=== PATIENT | male | born 1970 | race Caucasian/White ===

== ENCOUNTER 2017-02-19 10:28 | Inpatient (IN) | payer MEDICAID, OTHER ==
[~2017-02-19] VITALS: Ht 177.8 cm; Wt 106.6 kg
[2017-02-19 10:47] LABS: GLUCOSE,POINT OF CARE 113 MG/DL (70-110)
[2017-02-19] MEDS ORDERED: METF500T4 PO (10:48)
[2017-02-19] MEDS ORDERED: PSYCH MED PO (10:48)
[2017-02-19] MEDS ORDERED: LISI-660 PO (10:48)
[2017-02-19] MEDS ORDERED: PARO10TA89 PO (10:48)
[2017-02-19] MEDS ORDERED: OLAN2.5T3 PO (10:48)
[2017-02-19] MEDS ORDERED: LORazepam 2 MG/ML VIAL IM ONE (12:00)
[2017-02-19] MEDS ORDERED: HALOPERIDOL LACTATE 5 MG/ML VIAL IM ONE (12:00)
[2017-02-19] MEDS ORDERED: DiphenhydrAMINE HCL 50 MG/ML VIAL IM ONE (12:00)
[2017-02-19 12:20] LABS: BASOPHILS # (AUTO) 0.08 K/uL (0.00-0.20); BASOPHILS % (AUTO) 0.8 % (0.0-2.0); EOSINOPHILS # (AUTO) 0.02 K/uL (0.00-0.70); EOSINOPHILS % (AUTO) 0.22 % (1.0-6.0); HEMATOCRIT 41.6 % (41-53); HEMOGLOBIN 14.3 g/dL (13.5-17.5); LYMPHOCYTES # (AUTO) 2.2 K/uL (1.0-4.8); LYMPHOCYTES % (AUTO) 23.8 % (22.0-44.0); MEAN CORPUSCULAR HEMOGLOBIN 30.3 pg (26.0-34.0); MEAN CORPUSCULAR HGB CONC 34.3 G/dL (31.0-37.0); MEAN CORPUSCULAR VOLUME 88 fL (80-100); MONOCYTES # (AUTO) 0.6 K/uL (0.1-1.0); MONOCYTES % (AUTO) 6.7 % (2.0-9.0); NEUTROPHILS # (AUTO) 6.3 K/uL (1.8-7.7); NEUTROPHILS % (AUTO) 68.6 % (40.0-70.0); PLATELET COUNT (AUTO) 346 K/uL (150-450); RED BLOOD CELL COUNT(AUTO) 4.72 MIL/uL (4.50-5.90); RED CELL DISTRIBUTION WIDTH 13.4 % (11.5-14.5); WHITE BLOOD COUNT (AUTO) 9.3 K/uL (4.5-11.0)
[2017-02-19 12:32] LABS: ANION GAP 11 mmol/L (8-16); CARBON DIOXIDE 23 mmol/L (22-29); CHLORIDE 104 mmol/L (98-107); CREATININE 1.21 mg/dL (0.60-1.30); GLOMERULAR FILTR. RATE CALC > 60 mL/min (>60); POTASSIUM 4.3 mmol/L (3.5-5.1); SODIUM SERUM 138 mmol/L (136-145); UREA NITROGEN, BLOOD 10 mg/dL (7-18)
[2017-02-19 12:37] LABS: ALANINE AMINOTRANSFERASE 77 U/L (12-78); ALBUMIN 3.9 g/dL (3.4-5.0); ASPARTATE AMINOTRANSFERASE 29 U/L (15-37); BILIRUBIN,TOTAL 0.2 mg/dL (0.1-1.0); TOTAL PROTEIN, SERUM 7.5 g/dL (6.4-8.2)
[2017-02-19] MEDS ORDERED: HALOPERIDOL 5 MG TABLET PO PRN (16:00)
[2017-02-19] MEDS ORDERED: ZOLPIDEM TARTRATE 10 MG TABLET PO PRN (16:00)
[2017-02-19 16:16] VITALS: BP 136/75
[2017-02-19 16:57] LABS: GLUCOSE,POINT OF CARE 134 MG/DL (70-110)
[2017-02-19] MEDS ORDERED: INSULIN ASPART 100 UNITS/ML SQ PRN (17:00)
[2017-02-19] MEDS ORDERED: GLUCAGON,HUMAN RECOMBINANT 1 MG VIAL IM PRN (17:00)
[2017-02-19] MEDS ORDERED: PNEUMOCOCCAL VACCINE POLYVALENT 0.5 ML VIAL [PPSV23] IM ONE (18:00)
[2017-02-20 02:15] VITALS: BP 130/78
[2017-02-20 06:12] LABS: GLUCOSE,POINT OF CARE 103 MG/DL (70-110)
[2017-02-20] MEDS: MetFORMIN HCL 500 MG TABLET PO SCH (06:30)
[2017-02-20 08:00] VITALS: BP 128/81
[2017-02-20] MEDS: NICOTINE 21 MG/24 HOUR PATCH TD SCH (08:34)
[2017-02-20] MEDS: LISINOPRIL 5 MG TABLET PO SCH (08:34)
[2017-02-20] MEDS: LORazepam 2 MG TABLET PO PRN (08:34)
[2017-02-20] MEDS: PARoxetine HCL 20 MG TABLET PO SCH (09:43)
[2017-02-20] MEDS: QUEtiapine FUMARATE 100 MG TABLET PO SCH (09:43)
[2017-02-20 10:06] LABS: CHOL/HDL RATIO 3.7 (4.2-7.3)
[2017-02-20 16:00] VITALS: BP 115/66
[2017-02-20 17:41] LABS: GLUCOSE,POINT OF CARE 83 MG/DL (70-110)
[2017-02-20] MEDS: QUEtiapine FUMARATE 200 MG TABLET PO SCH (20:48)
[2017-02-21 06:03] VITALS: BP 117/75
[2017-02-21 06:42] LABS: GLUCOSE,POINT OF CARE 106 MG/DL (70-110)
[2017-02-21] MEDS: MetFORMIN HCL 500 MG TABLET PO SCH (06:44)
[2017-02-21 08:43] VITALS: BP 119/80
[2017-02-21] MEDS: LISINOPRIL 5 MG TABLET PO SCH (09:18)
[2017-02-21] MEDS: LORazepam 2 MG TABLET PO PRN ×2 (09:18→16:50)
[2017-02-21] MEDS: QUEtiapine FUMARATE 100 MG TABLET PO SCH (09:19)
[2017-02-21] MEDS: NICOTINE 21 MG/24 HOUR PATCH TD SCH (09:19)
[2017-02-21] MEDS: PARoxetine HCL 20 MG TABLET PO SCH (09:19)
[2017-02-21 16:00] VITALS: BP 113/71
[2017-02-21 17:07] LABS: GLUCOSE,POINT OF CARE 111 MG/DL (70-110)
[2017-02-21] MEDS: QUEtiapine FUMARATE 200 MG TABLET PO SCH (20:43)
[2017-02-22] MEDS: MetFORMIN HCL 500 MG TABLET PO SCH (06:21)
[2017-02-22 06:23] LABS: GLUCOSE,POINT OF CARE 89 MG/DL (70-110)
[2017-02-22 06:30] VITALS: BP 110/71
[2017-02-22 08:25] VITALS: BP 114/62
[2017-02-22] MEDS: QUEtiapine FUMARATE 100 MG TABLET PO SCH (08:34)
[2017-02-22] MEDS: NICOTINE 21 MG/24 HOUR PATCH TD SCH (08:34)
[2017-02-22] MEDS: PARoxetine HCL 20 MG TABLET PO SCH (08:34)
[2017-02-22] MEDS: LISINOPRIL 5 MG TABLET PO SCH (08:34)
[2017-02-22] MEDS ORDERED: PARO20TA24 PO (12:12)
[2017-02-22] MEDS ORDERED: QUET100T PO (12:12)
[2017-02-22] MEDS ORDERED: QUET200T PO (12:12)
[2017-02-22] MEDS ORDERED: LISI-660 PO (12:12)
[2017-02-22] MEDS ORDERED: METF500T4 PO (12:12)
== END 2017-02-22 15:31 | disposition home or self-care (01) | DRG 750 ==
LOC: EMS 10:29 → B3A 14:01
PROVIDERS: ADMIT Psychiatry & Neurology Child & Adolescent Psychiatry; ATTEND Psychiatry & Neurology Child & Adolescent Psychiatry
DX: F20.0 Paranoid schizophrenia (principal); Z78.1 Physical restraint status; I10 Essential (primary) hypertension; E11.9 Type 2 diabetes mellitus without complications; F15.10 Other stimulant abuse, uncomplicated; F17.210 Nicotine dependence, cigarettes, uncomplicated; F41.9 Anxiety disorder, unspecified; F32.9 Major depressive disorder, single episode, unspecified; E78.5 Hyperlipidemia, unspecified; G47.00 Insomnia, unspecified; Z28.21 Immunization not carried out because of patient refusal; Z91.5 Personal history of self-harm; Z79.899 Other long term (current) drug therapy; Z71.51 Drug abuse counseling and surveillance of drug abuser; Z71.6 Tobacco abuse counseling
CPT/HCPCS: 82962; 90471; 96372; 99285; G0480; J1200; J1630; J2060

== ENCOUNTER 2020-02-24 20:18 | Emergency (ER) | payer MEDICAID, OTHER ==
[~2020-02-24] VITALS: Ht 180.3 cm; Wt 112.3 kg
[~2020-02-24 20:18] MED LIST: LISI-660 PO; METF-960 PO; PARO20TA24 PO; QUET200T PO
[2020-02-24] MEDS ORDERED: RISP4TAB73 PO (20:38)
[2020-02-24] MEDS ORDERED: PALI234D IM (20:38)
[2020-02-24] MEDS ORDERED: QUET200T PO (20:38)
[2020-02-24 22:29] LABS: BASOPHILS % (AUTO) 1.1 % (0.0-2.0); HEMATOCRIT 43.5 % (41-53); HEMOGLOBIN 14.6 g/dL (13.5-17.5); LYMPHOCYTES # (AUTO) 2.9 K/uL (1.0-4.8); LYMPHOCYTES % (AUTO) 27.3 % (22.0-44.0); MEAN CORPUSCULAR HEMOGLOBIN 30.3 pg (26.0-34.0); MEAN CORPUSCULAR HGB CONC 33.5 G/dL (31.0-37.0); MEAN CORPUSCULAR VOLUME 90 fL (80-100); MONOCYTES # (AUTO) 0.9 K/uL (0.1-1.0); NEUTROPHILS # (AUTO) 6.5 K/uL (1.8-7.7); NEUTROPHILS % (AUTO) 61.6 % (40.0-70.0); PLATELET COUNT (AUTO) 318 K/uL (150-450); RED BLOOD CELL COUNT(AUTO) 4.81 MIL/uL (4.50-5.90); RED CELL DISTRIBUTION WIDTH 13.3 % (11.5-14.5)
[2020-02-24 22:38] LABS: ANION GAP 8 mmol/L (8-16); CALCIUM, TOTAL 9.1 mg/dL (8.8-10.5); CARBON DIOXIDE 30 mmol/L (22-29); CHLORIDE 105 mmol/L (98-107); CREATININE 1.54 mg/dL (0.60-1.30); GLOMERULAR FILTR. RATE CALC 48 mL/min (>60); GLUCOSE,RANDOM 193 mg/dL (70-110); POTASSIUM 4.2 mmol/L (3.5-5.1); SODIUM SERUM 143 mmol/L (136-145); UREA NITROGEN, BLOOD 16 mg/dL (7-18)
[2020-02-24 22:44] LABS: ALANINE AMINOTRANSFERASE 58 U/L (12-78); ALBUMIN 3.8 g/dL (3.4-5.0); ALKALINE PHOSPHATASE 95 U/L (46-116); ASPARTATE AMINOTRANSFERASE 27 U/L (15-37); BILIRUBIN,TOTAL 0.3 mg/dL (0.1-1.0); TOTAL PROTEIN, SERUM 7.7 g/dL (6.4-8.2)
[2020-02-25 04:35] LABS: AMPHET/METH SCREEN,URINE NEGATIVE (NEGATIVE); BARBITURATE SCREEN, URINE NEGATIVE (NEGATIVE); BENZODIAZEPINES SCREEN,URINE NEGATIVE (NEGATIVE); CANNABINOID SCREEN,URINE NEGATIVE (NEGATIVE); COCAINE SCREEN,URINE NEGATIVE (NEGATIVE); METHADONE SCREEN, URINE NEGATIVE (NEGATIVE); OPIATE SCREEN,URINE NEGATIVE (NEGATIVE)
[2020-02-25 04:50] LABS: PHENCYCLIDINE SCREEN,URINE NEGATIVE (NEGATIVE)
[2020-02-25] MEDS ORDERED: QUEtiapine FUMARATE 100 MG TABLET PO ONE (09:00)
[2020-02-25 10:00] VITALS: BP 119/75
== END 2020-02-25 10:19 | disposition home or self-care (01) ==
LOC: EMS 20:19
DX: E11.65 Type 2 diabetes mellitus with hyperglycemia (principal); F69 Unspecified disorder of adult personality and behavior; F41.9 Anxiety disorder, unspecified; F32.9 Major depressive disorder, single episode, unspecified; Z79.899 Other long term (current) drug therapy
CPT/HCPCS: 36415; 80053; 80307; 85025; 99285; G0480

== ENCOUNTER 2020-04-08 18:00 | Emergency (ER) | payer OTHER ==
[~2020-04-08] VITALS: Ht 180.3 cm; Wt 112.3 kg
[~2020-04-08 18:00] MED LIST changes: +PALI234D IM; +PARO-38 PO; -PARO20TA24 PO; +RISP4TAB73 PO
[2020-04-08] MEDS ORDERED: FAMOTIDINE 20 MG TABLET PO ONE (21:00)
[2020-04-08] MEDS ORDERED: PERMETHRIN 5% 60 GM CREAM TP ONE (21:00)
[2020-04-08] MEDS ORDERED: DiphenhydrAMINE HCL 25 MG CAPSULE PO ONE (21:00)
[2020-04-08 23:01] VITALS: BP 112/71
[2020-04-08 23:42] LABS: COVID AG,FIA SOURCE NASAL SWAB
[2020-04-09 08:26] LABS: GLUCOSE,POINT OF CARE 171 MG/DL (70-110)
== END 2020-04-08 23:36 | disposition home or self-care (01) ==
LOC: EMS 18:00
DX: B86 Scabies (principal); F41.9 Anxiety disorder, unspecified; F31.9 Bipolar disorder, unspecified; E11.9 Type 2 diabetes mellitus without complications; E78.00 Pure hypercholesterolemia, unspecified; I10 Essential (primary) hypertension; F20.9 Schizophrenia, unspecified; F17.210 Nicotine dependence, cigarettes, uncomplicated; Z20.828 Contact with and (suspected) exposure to other viral communicable diseases; Z79.899 Other long term (current) drug therapy; Z79.84 Long term (current) use of oral hypoglycemic drugs
CPT/HCPCS: 82962; 87426; 99284; C9803